=== PATIENT | female | born 1995 | race Caucasian/White ===

== ENCOUNTER 2017-03-17 21:39 | Emergency (ER) | payer MEDICAID ==
[~2017-03-17] VITALS: Ht 167.6 cm; Wt 104.5 kg
[~2017-03-17 21:39] MED LIST: NO HOME MEDS
[2017-03-17] MEDS ORDERED: CEPH500C5 PO (22:16)
[2017-03-17] MEDS ORDERED: ACET-2812 PO (22:16)
[2017-03-17 22:28] VITALS: BP 130/77
== END 2017-03-17 22:29 | disposition home or self-care (01) ==
LOC: ER 21:40
DX: N61.0 Mastitis without abscess (principal); F15.10 Other stimulant abuse, uncomplicated; Z88.2 Allergy status to sulfonamides; Z88.1 Allergy status to other antibiotic agents
CPT/HCPCS: 99283

== ENCOUNTER 2018-05-13 09:38 | Outpatient (CLI) | payer OTHER ==
[~2018-05-13 09:38] MED LIST changes: +ACET-2812 PO
[2018-05-13 10:13] LABS: CLARITY,URINE CLEAR (Clear); COLOR,URINE YELLOW (Yellow); GLUCOSE, URINE NEGATIVE (Neg); KETONES,URINE NEGATIVE (Neg); LEUKOCYTE ESTERASE ,URINE NEGATIVE (Neg); NITRITES, URINE NEGATIVE (Neg); OCCULT BLOOD,URINE NEGATIVE (Neg); PROTEIN,URINE NEGATIVE (Neg); UROBILINOGEN,URINE 0.2 E.U/dL (0.2-1.0)
[2018-05-13 10:16] LABS: UA COLLECTION TYPE VOIDED
[2018-05-13 10:20] LABS: BASOPHILS % (AUTO) 0.6 % (0-1); EOSINOPHILS # (AUTO) 0.3 X10'3 (0-0.9); EOSINOPHILS % (AUTO) 4.7 % (0-6); HEMATOCRIT 42.5 % (35.0-45.0); HEMOGLOBIN 14.1 g/dl (12.0-16.0); LYMPHOCYTES # (AUTO) 2.3 X10'3 (1.1-4.8); LYMPHOCYTES % (AUTO) 37.5 % (21-51); MEAN CORPUSCULAR HEMOGLOBIN 31.8 PG (27.0-31.0); MEAN CORPUSCULAR HGB CONC 33.2 g/dL (33.0-36.5); MEAN CORPUSCULAR VOLUME 95.8 FL (78-98); MEAN PLATELET VOLUME 9.4 FL (7.4-10.4); MONOCYTES # (AUTO) 0.4 X10'3 (0-0.9); NEUTROPHILS # (AUTO) 3.1 X10'3 (1.8-7.7); NEUTROPHILS % (AUTO) 51.2 % (42-75); PLATELET COUNT 227 X10'3 (140-440); RED BLOOD COUNT 4.43 X10'6 (4.20-5.60); RED CELL DISTRIBUTION WIDTH 13.2 % (11.5-14.5); WHITE BLOOD COUNT 6.1 X10'3 (4.5-11.0)
[2018-05-13 10:33] LABS: ALANINE AMINOTRANSFERASE 20 U/L (12-78); ALBUMIN 3.8 G/DL (3.4-5.0); ALKALINE PHOSPHATASE 72 IU/L (46-116); ANION GAP 7 (8-16); ASPARTATE AMINO TRANSFERASE 14 U/L (10-37); BILIRUBIN,TOTAL 0.6 MG/DL (0.1-1.0); BLOOD UREA NITROGEN 14 MG/DL (7-18); BUN/CREATININE RATIO 17.9 (6.6-38.0); CHLORIDE 104 MMOL/L (99-107); CHOL/HDL RATIO 4.9 (0.00-4.99); CHOLESTEROL 172 MG/DL (0-200); CREATININE 0.78 MG/DL (0.40-0.90); GLUCOSE 85 MG/DL (70-104); HDL CHOLESTEROL 35 MG/DL (35-60); LDL CHOLESTEROL 125 MG/DL (50-100); SODIUM 138 MMOL/L (135-145); TOTAL CARBON DIOXIDE 27.1 MMOL/L (24-32); TOTAL PROTEIN 7.5 G/DL (6.4-8.2); TRIGLYCERIDES 152 MG/DL (20-135); eGFR > 90 ML/MIN
== END 2018-05-13 23:59 | disposition home or self-care (01) ==
LOC: LAB 09:38
PROVIDERS: ATTEND Family Medicine
DX: E28.2 Polycystic ovarian syndrome (principal); F17.200 Nicotine dependence, unspecified, uncomplicated; Z76.89 Persons encountering health services in other specified circumstances; Z30.09 Encounter for other general counseling and advice on contraception; Z72.89 Other problems related to lifestyle; Z88.2 Allergy status to sulfonamides; Z88.8 Allergy status to other drugs, medicaments and biological substances
CPT/HCPCS: 36415; 80053; 80061; 81003; 84439; 84443; 85025

== ENCOUNTER 2018-06-12 08:31 | Emergency (ER) | payer OTHER ==
[~2018-06-12] VITALS: Ht 167.6 cm; Wt 95.4 kg
[2018-06-12] MEDS ORDERED: ACET-3068 PO (09:37)
[2018-06-12] MEDS ORDERED: DOCU-28 PO (09:37)
[2018-06-12 10:01] VITALS: BP 107/53
== END 2018-06-12 10:04 | disposition home or self-care (01) ==
LOC: ER 08:31
DX: M53.3 Sacrococcygeal disorders, not elsewhere classified (principal); F15.90 Other stimulant use, unspecified, uncomplicated; Z88.2 Allergy status to sulfonamides; Z88.8 Allergy status to other drugs, medicaments and biological substances; Z79.899 Other long term (current) drug therapy
CPT/HCPCS: 72220; 99284

== ENCOUNTER 2018-07-24 10:02 | Outpatient (CLI) | payer OTHER ==
[~2018-07-24 10:02] MED LIST changes: +DOCU-28 PO
== END 2018-07-24 23:59 | disposition home or self-care (01) ==
LOC: LAB 10:02
DX: J06.9 Acute upper respiratory infection, unspecified (principal); Z87.891 Personal history of nicotine dependence
CPT/HCPCS: 87070

== ENCOUNTER 2018-11-23 15:42 | Emergency (ER) | payer BC, MEDICAID ==
[~2018-11-23] VITALS: Ht 167.6 cm; Wt 95.5 kg
[~2018-11-23 15:42] MED LIST changes: -ACET-2812 PO; +ACET-3055 PO
[2018-11-23 16:03] VITALS: BP 120/85
[2018-11-23 16:30] LABS: BASOPHILS # (AUTO) 0.1 X10'3 (0-0.2); BASOPHILS % (AUTO) 0.7 % (0-1); EOSINOPHILS # (AUTO) 0.3 X10'3 (0-0.9); EOSINOPHILS % (AUTO) 2.7 % (0-6); HEMATOCRIT 41.9 % (35.0-45.0); HEMOGLOBIN 14.2 g/dl (12.0-16.0); LYMPHOCYTES # (AUTO) 3.5 X10'3 (1.1-4.8); LYMPHOCYTES % (AUTO) 34.2 % (21-51); MEAN CORPUSCULAR HEMOGLOBIN 32.2 PG (27.0-31.0); MEAN CORPUSCULAR VOLUME 94.6 FL (78-98); MEAN PLATELET VOLUME 8.7 FL (7.4-10.4); MONOCYTES # (AUTO) 0.6 X10'3 (0-0.9); MONOCYTES % (AUTO) 5.5 % (2-12); NEUTROPHILS # (AUTO) 5.9 X10'3 (1.8-7.7); NEUTROPHILS % (AUTO) 56.9 % (42-75); PLATELET COUNT 241 X10'3 (140-440); RED BLOOD COUNT 4.43 X10'6 (4.20-5.60); RED CELL DISTRIBUTION WIDTH 12.8 % (11.5-14.5); WHITE BLOOD COUNT 10.3 X10'3 (4.5-11.0)
[2018-11-23 16:35] LABS: D-DIMER 0.22 MG/L FEU (0-0.50)
[2018-11-23 16:38] LABS: ALANINE AMINOTRANSFERASE 25 U/L (12-78); ALBUMIN 3.6 G/DL (3.4-5.0); ALBUMIN/GLOBULIN RATIO 0.9 (1.1-1.5); ALKALINE PHOSPHATASE 59 IU/L (46-116); ANION GAP 7 (8-16); ASPARTATE AMINO TRANSFERASE 15 U/L (10-37); BILIRUBIN,TOTAL 0.2 MG/DL (0.1-1.0); BLOOD UREA NITROGEN 15 MG/DL (7-18); BUN/CREATININE RATIO 18.3 (6.6-38.0); CHLORIDE 107 MMOL/L (99-107); CREATININE 0.82 MG/DL (0.40-0.90); GLUCOSE 91 MG/DL (70-104); POTASSIUM 3.9 MMOL/L (3.5-5.1); SODIUM 141 MMOL/L (135-145); TOTAL CARBON DIOXIDE 26.9 MMOL/L (24-32); TOTAL PROTEIN 7.5 G/DL (6.4-8.2); eGFR 86 ML/MIN
[2018-11-23] MEDS ORDERED: ketorolac trometh inj. 60 MG/2 ML VIAL IM ONE (16:45)
[2018-11-23] MEDS ORDERED: CYCL-1 PO (16:46)
== END 2018-11-23 17:23 | disposition home or self-care (01) ==
LOC: ER 15:44
DX: R07.89 Other chest pain (principal); F17.200 Nicotine dependence, unspecified, uncomplicated; Z88.1 Allergy status to other antibiotic agents; Z88.8 Allergy status to other drugs, medicaments and biological substances
CPT/HCPCS: 36415; 71045; 80053; 84484; 85025; 85379; 93005; 96372; 99284; J1885

== ENCOUNTER 2019-01-21 13:32 | Emergency (ER) | payer BC, MEDICAID ==
[~2019-01-21] VITALS: Ht 167.6 cm; Wt 98.6 kg
[~2019-01-21 13:32] MED LIST changes: +CYCL-1 PO
[2019-01-21 13:44] VITALS: BP 118/80
== END 2019-01-21 14:36 | disposition home or self-care (01) ==
LOC: ER 13:33 → EEVIPCON 13:33 → ER 14:36
DX: H66.92 Otitis media, unspecified, left ear (principal); H60.92 Unspecified otitis externa, left ear; Z88.2 Allergy status to sulfonamides; Z88.8 Allergy status to other drugs, medicaments and biological substances; Z79.899 Other long term (current) drug therapy
CPT/HCPCS: 99281

== ENCOUNTER 2019-04-11 16:04 | Emergency (ER) | payer BC, MEDICAID ==
[~2019-04-11] VITALS: Ht 167.6 cm; Wt 101.6 kg
[2019-04-11] MEDS ORDERED: normal saline 1000ML IV soln IVB ONE (18:05)
[2019-04-11] MEDS ORDERED: ondansetron/PF 4mg/2ml inj IV ONE (18:05)
[2019-04-11 19:35] VITALS: BP 133/66
== END 2019-04-11 19:44 | disposition home or self-care (01) ==
LOC: ER 16:06
DX: O21.1 Hyperemesis gravidarum with metabolic disturbance (principal); Z3A.01 Less than 8 weeks gestation of pregnancy; Z88.1 Allergy status to other antibiotic agents; Z88.8 Allergy status to other drugs, medicaments and biological substances
CPT/HCPCS: 96361; 96374; 99283; J2405; J7030

== ENCOUNTER 2024-01-07 16:57 | Emergency (ER) | payer BC, MEDICAID ==
[~2024-01-07] VITALS: Ht 167.6 cm; Wt 91.9 kg
[~2024-01-07 16:57] MED LIST changes: -ACET-3055 PO; +ACET-3414 PO
[2024-01-07] MEDS: LIDOcaine 5% patch TP SCH (17:50)
[2024-01-07 17:52] LABS: BILIRUBIN,URINE NEGATIVE (Neg); CLARITY,URINE SLIGHTLY CLOUDY (Clear); COLOR,URINE YELLOW (Yellow); GLUCOSE, URINE NEGATIVE (Neg); KETONES,URINE NEGATIVE (Neg); LEUKOCYTE ESTERASE ,URINE SMALL (Neg); NITRITES, URINE NEGATIVE (Neg); OCCULT BLOOD,URINE MODERATE (Neg); PROTEIN,URINE NEGATIVE (Neg); UROBILINOGEN,URINE 0.2 E.U/dL (0.2-1.0)
[2024-01-07 18:01] LABS: UA COLLECTION TYPE CLN CATCH MIDSTREAM
[2024-01-07 18:02] LABS: URINE HCG NEGATIVE (NEG)
[2024-01-07 18:03] LABS: BACTERIA,URINE 3+ /HPF (Neg); RBC,URINE 0-2 /HPF (0-2)
[2024-01-07 18:04] LABS: SQUAMOUS EPITHELIAL CELL,UR MODERATE /LPF (FEW)
[2024-01-07] MEDS ORDERED: CEPH-585 PO (18:17)
[2024-01-07] MEDS ORDERED: CYCL-1 PO (18:17)
[2024-01-07] MEDS ORDERED: LIDO700A32 TD (18:17)
[2024-01-07 18:41] VITALS: BP 122/64; PULSE 80; RESP 18; TEMP 98.1; O2SAT 99
== END 2024-01-07 18:42 | disposition home or self-care (01) ==
LOC: ER 16:58
DX: R07.81 Pleurodynia (principal); N39.0 Urinary tract infection, site not specified; Z88.2 Allergy status to sulfonamides; Z79.899 Other long term (current) drug therapy; Z79.2 Long term (current) use of antibiotics; Z88.1 Allergy status to other antibiotic agents
CPT/HCPCS: 71100; 81001; 81025; 99284

== ENCOUNTER 2024-03-07 22:51 | Emergency (ER) | payer BC ==
[~2024-03-07] VITALS: Ht 167.6 cm; Wt 92.1 kg
[~2024-03-07 22:51] MED LIST changes: +LIDO700A32 TD
[2024-03-07 23:15] VITALS: TEMP 97.9
[2024-03-07 23:53] LABS: BASOPHILS % (AUTO) 0.4 % (0-1); EOSINOPHILS # (AUTO) 0.2 X10'3 (0-0.9); HEMATOCRIT 39.8 % (35.0-45.0); HEMOGLOBIN 13.6 g/dl (12.0-16.0); LYMPHOCYTES # (AUTO) 3.1 X10'3 (1.1-4.8); LYMPHOCYTES % (AUTO) 44.3 % (21-51); MEAN CORPUSCULAR HEMOGLOBIN 32.9 PG (27.0-31.0); MEAN CORPUSCULAR HGB CONC 34.1 g/dL (33.0-36.5); MEAN CORPUSCULAR VOLUME 96.5 FL (78-98); MEAN PLATELET VOLUME 9.1 FL (7.4-10.4); MONOCYTES # (AUTO) 0.4 X10'3 (0-0.9); NEUTROPHILS # (AUTO) 3.2 X10'3 (1.8-7.7); NEUTROPHILS % (AUTO) 46.3 % (42-75); PLATELET COUNT 259 X10'3 (140-440); RED BLOOD COUNT 4.13 X10'6 (4.20-5.60); RED CELL DISTRIBUTION WIDTH 12.9 % (11.5-14.5); WHITE BLOOD COUNT 6.9 X10'3 (4.5-11.0)
[2024-03-08] MEDS: mag hydrox/Alum hydrox/simeth 30ml oral suspension PO ONE
[2024-03-08] MEDS: LIDOcaine 2% Viscous 15ml cup MM ONE (00:01)
[2024-03-08 00:05] LABS: ALANINE AMINOTRANSFERASE 21 U/L (12-78); ALBUMIN 3.5 G/DL (3.4-5.0); ALKALINE PHOSPHATASE 47 IU/L (46-116); ANION GAP 8 (8-16); ASPARTATE AMINO TRANSFERASE 13 U/L (10-37); BILIRUBIN,TOTAL 0.4 MG/DL (0.1-1.0); BLOOD UREA NITROGEN 11 MG/DL (7-18); BUN/CREATININE RATIO 12.2 (10.0-20.0); CALCIUM 8.9 MG/DL (8.5-10.1); CHLORIDE 105 MMOL/L (99-107); GLUCOSE 101 MG/DL (70-104); POTASSIUM 4.1 MMOL/L (3.5-5.1); SODIUM 139 MMOL/L (135-145); TOTAL CARBON DIOXIDE 26.5 MMOL/L (24-32); TOTAL PROTEIN 7.1 G/DL (6.4-8.2); eCRCL 87 ML/MIN; eGFR 75 ML/MIN
[2024-03-08 00:12] LABS: PRO BRAIN NATRIURETIC PEPTIDE 117 PG/ML (0-125)
[2024-03-08 00:54] VITALS: BP 98/62; PULSE 67; RESP 18; O2SAT 97
== END 2024-03-08 00:59 | disposition home or self-care (01) ==
LOC: ER 22:52
DX: R07.89 Other chest pain (principal); Z88.2 Allergy status to sulfonamides; Z88.1 Allergy status to other antibiotic agents; Z79.899 Other long term (current) drug therapy
CPT/HCPCS: 36415; 71045; 80053; 83880; 84484; 85025; 93005; 99285

== ENCOUNTER 2025-01-09 22:08 | Emergency (ER) | payer BC ==
[~2025-01-09] VITALS: Ht 167.6 cm; Wt 90.9 kg
[~2025-01-09 22:08] MED LIST changes: +LIDO-52 TD; -LIDO700A32 TD
[2025-01-09 22:21] VITALS: BP 114/79; PULSE 82; RESP 16; O2SAT 99
[2025-01-09] MEDS ORDERED: CHLO118M PO (23:12)
[2025-01-09] MEDS ORDERED: HYDR-3965 PO (23:12)
--- NOTE | 2025-01-09 23:13 | Physician Documentation ---
HPI ~ General Chief Complaint: Mouth Pain Stated Complaint: MOUTH PAIN Time Seen by MD: 23:00 Primary Medical Doctor: Bal Barton Medication Reconciliation Allergies: Coded Allergies: amoxicillin (Verified Allergy, Mild, 01/09/25) sulfamethoxazole (Verified Allergy, Unknown, 01/09/25) trimethoprim (Verified Allergy, Unknown, 01/09/25) Scheduled Chlorhexidine Gluconate (Peridex), 15-30 ML PO Q8H Cyclobenzaprine* (Cyclobenzaprine*), 1 TAB PO HS Docusate Sodium (Colace), 1 CAP PO Q12H Lidocaine (Lidoderm), 1 PATCH TD DAILY Scheduled PRN Acetaminophen/Diphenhydramine (Tylenol Pm Ex-Strength Caplet), 1 TAB-CAP PO Q6H PRN PRN for fever or pain Cyclobenzaprine* (Cyclobenzaprine*), 1 TABLET PO Q8H PRN for muscle spasms Hydrocodone Bit/Acetaminophen 5/325 MG ([place] 5/325 MG), 1-2 TAB PO Q4-6 hours PRN for pain Miscellaneous Medications Home Med List (No Home Medications), (Reported) Past Medical History Past Medical History: No Pertinent History Past Surgical History: no surgical history Alcohol Use: None Lives with: Family Lives In: Home Review of Systems All Other Systems at this time: Reviewed and Negative Constitutional: Reports: see HPI; Denies: chills, fever Physical Exam Vital Signs: RN Vital Signs have been reviewed: Yes, Temperature: 96.8, Source: Temporal, Heart Rate: 82, Respiratory Rate: 16, BP: 114/79, Pulse Oximetry: 99, Weight: 90.900 General Appearance: alert, WD/WN, mild distress EENT General: other (Mild left cheek swelling with erythema with no palpable induration or fluctuance) Mouth/Throat: normal mouth inspection, other (Gingival erythema without abscess) Palate: normal inspection Teeth/Gums: normal inspection Face: normal inspection, other (No trismus) Neck: non-tender Respiratory: lungs clear Chest: no accessory muscle use Cardiovascular: normal peripheral pulses Gastrointestinal: non-tender Skin: normal color Progress Results/Orders Results/Orders Vital Signs 01/09/25 01/09/25 22:21 23:24 Temp 96.8 96.8 Pulse 82 Resp 16 B/P (MAP) 114/79 Pulse Ox 99 Medical Decision Making Additional information obtaine: N/A Findings Examination history consistent with a odontogenic infection causing cellulitis without obvious abscess. We will support patient with the pain management to be obtained in the morning. No clinical suspicion for angioedema, Vega's angina or odontogenic abscess. Safely discharged in the emergency department Differential Dx:Considerations: Include: Alveolar fracture, Alveolar osteitis, ANUG, Facial Cellulitis, Periapical abscess, Peridontal abscess, Post-extraction bleeding, Pulpitis, Tooth avulsion, Tooth eruption, Tooth Fracture, Trigeminal neuralgia, Tooth subluxation, Other Departure Disposition: HOME / SELF CARE / HOMELESS Impression: Primary Impression: Facial cellulitis Additional Impression: Odontogenic infection of jaw Condition: Stable Discharge Instructions: Carbamide Peroxide Dental Solution, Dental Abscess, [id number] Additional Instructions: Please continue with your clindamycin for the facial cellulitis secondary to dental infection. Please obtain prescriptions for pain and for oral rinses and use as directed. Keep your scheduled follow up appointment with the oral surgeon return to the emergency department as needed. Thank you for visiting [facility]. Referrals: NO PRIMARY CARE PROVIDER (PCP) Prescriptions Hydrocodone Bit/Acetaminophen 5/325 MG ([place] 5/325 MG) 5 Mg/325 Mg Tablet 1-2 TAB PO Q4-6 hours PRN for pain, #16 TAB Prov: CRUZ LARRY 01/09/25 Chlorhexidine Gluconate (Peridex) 0.12 % Mouthwash 15-30 ML PO Q8H for 8 Days, #473 ML 0 Refills Prov: CRUZ LARRY 01/09/25 Education Educated: Patient Educated regarding: diagnosis, treatment, prognosis, need for follow up Signature Scribe Signature: . Attestation: . CRUZ LARRY Jan 09, 2025 23:13
[2025-01-09 23:24] VITALS: TEMP 96.8
== END 2025-01-09 23:24 | disposition home or self-care (01) ==
LOC: ER 22:09
DX: L03.211 Cellulitis of face (principal); M27.2 Inflammatory conditions of jaws; Z88.1 Allergy status to other antibiotic agents; Z88.2 Allergy status to sulfonamides; Z79.899 Other long term (current) drug therapy
CPT/HCPCS: 99283